=== PATIENT | female | born 2005 | race Asian ===

== ENCOUNTER 2024-09-11 23:12 | Inpatient (IN) | payer OTHER ==
[~2024-09-11] VITALS: Ht 152.4 cm; Wt 45.4 kg
[2024-09-11] MEDS: ONDANSETRON HCL INJ 2MG/ML 2ML 2 MG/ML VIAL IV STA (23:46)
[2024-09-11] MEDS: SODIUM CHLORIDE 0.9% 1000ML 1,000 ML IV ONE (23:46)
[2024-09-11] MEDS: SODIUM CHLORIDE FLUSH 10 ML SYR INJ PRN (23:47)
[2024-09-11 23:49] LABS: BASOPHILS % 0.3 % (0.0-1.0); HEMATOCRIT 47.7 % (34.2-44.1); LYMPHOCYTES # (AUTO) 0.4 (1.0-3.2); LYMPHOCYTES % 5.6 % (18.0-39.1); MEAN CORPUSCULAR HEMOGLOBIN 27.1 pg (28-32); MEAN CORPUSCULAR HGB CONC 31.4 g/dL (31-35); MEAN CORPUSCULAR VOLUME 86.1 fL (81-99); MONOCYTES # (AUTO) 0.6 (0.2-0.8); NEUTROPHILS # (AUTO) 6.7 (2.1-6.9); NEUTROPHILS % 85.8 % (38.7-80.0); PLATELET COUNT 389 x10e3/uL (140-360); RED BLOOD COUNT 5.54 x10e6/uL (3.6-5.1); RED CELL DISTRIBUTION WIDTH 12.8 % (11.7-14.4); WHITE BLOOD COUNT 7.83 x10e3/uL (4.8-10.8)
[2024-09-12 00:03] LABS: LIPASE 41 U/L (8-78)
[2024-09-12 00:07] LABS: ALBUMIN 4.5 g/dL (3.5-5.0); ALBUMIN/GLOBULIN RATIO 1.3 (0.8-2.0); ANION GAP 21.3 mmol/L (8-16); BILIRUBIN,TOTAL 0.5 mg/dL (0.2-1.2); CREATININE, SERUM 0.8 mg/dL (0.57-1.11); POTASSIUM 4.3 mmol/L (3.5-5.1); TOTAL PROTEIN 7.9 g/dL (6.5-8.1)
[2024-09-12] MEDS ORDERED: IOPAMIDOL 370 MG/ML 100 ML INFUS..BTL INJ ONE (00:22)
[2024-09-12] MEDS: SODIUM CHLORIDE 0.9% 1000ML 1,000 ML IV ONE (00:53)
[2024-09-12 02:00] VITALS: RESP 18
[2024-09-12] MEDS: SODIUM CHLORIDE 0.9% 1000ML 1,000 ML IV SCH ×2 (02:03→03:00)
[2024-09-12 02:06] LABS: CLARITY,URINE CLEAR (CLEAR); COLOR,URINE YELLOW (YELLOW); GLUCOSE, URINE NEGATIVE (NEGATIVE); LEUKOCYTE ESTERASE ,URINE NEGATIVE (NEGATIVE); NITRITE,URINE NEGATIVE (NEGATIVE); PH,URINE 6 (5 - 7); PROTEIN,URINE DIPSTICK 1+ (NEGATIVE)
[2024-09-12 02:07] LABS: BILIRUBIN,URINE NEGATIVE (NEGATIVE); KETONES,URINE 2+ (NEGATIVE); URINE UROBILINOGEN 0.2 mg/dL (0.2 - 1)
[2024-09-12 02:12] LABS: BACTERIA,URINE MANY /HPF; EPITHELIAL CELLS,URINE MANY /LPF; RBC,URINE 0-5 /HPF (0-5); WBC,URINE (MAN) 0-5 /HPF (0-5)
[2024-09-12] MEDS ORDERED: ONDANSETRON HCL INJ 2MG/ML 2ML 2 MG/ML VIAL IV PRN (03:00)
[2024-09-12] MEDS: METRONIDAZOLE 500MG/NS 100ML 100 ML IV SCH ×2 (03:28→08:36)
[2024-09-12] MEDS: ACETAMINOPHEN 1000 MG/100 ML IV SCH (06:00)
[2024-09-12 06:44] VITALS: PULSE 83; TEMP 98.4
[2024-09-12] MEDS: LACTATED RINGER'S 1,000 ML INJ SCH (09:36)
[2024-09-12 14:00] VITALS: BP 105/57; PULSE 85; RESP 17; TEMP 98.5; O2SAT 99
[2024-09-12 14:18] VITALS: BP 105/57; PULSE 85; RESP 17; TEMP 98.5; O2SAT 99
[2024-09-12 16:00] VITALS: BP 108/61; PULSE 90; RESP 18; TEMP 98.1; O2SAT 100
[2024-09-12 16:15] LABS: BASOPHILS % 0.5 % (0.0-1.0); EOSINOPHILS % 0.3 % (0.0-6.0); HEMATOCRIT 38.8 % (34.2-44.1); HEMOGLOBIN 11.9 g/dL (12.0-16.0); LYMPHOCYTES # (AUTO) 0.5 (1.0-3.2); LYMPHOCYTES % 6.8 % (18.0-39.1); MEAN CORPUSCULAR HEMOGLOBIN 26.9 pg (28-32); MEAN CORPUSCULAR HGB CONC 30.7 g/dL (31-35); MEAN CORPUSCULAR VOLUME 87.6 fL (81-99); MONOCYTES # (AUTO) 0.7 (0.2-0.8); MONOCYTES % 9.7 % (4.4-11.3); NEUTROPHILS # (AUTO) 6.1 (2.1-6.9); NEUTROPHILS % 82.4 % (38.7-80.0); PLATELET COUNT 319 x10e3/uL (140-360); RED BLOOD COUNT 4.43 x10e6/uL (3.6-5.1); RED CELL DISTRIBUTION WIDTH 13.1 % (11.7-14.4); WHITE BLOOD COUNT 7.35 x10e3/uL (4.8-10.8)
[2024-09-12 20:00] VITALS: BP 108/69; PULSE 88; RESP 20; TEMP 97.9; O2SAT 100
[2024-09-13 02:13] VITALS: BP 108/69; PULSE 88; RESP 20; TEMP 97.9; O2SAT 100
[2024-09-13 04:00] VITALS: BP 113/59; PULSE 93; RESP 16; TEMP 98; O2SAT 98
[2024-09-13 05:47] LABS: BASOPHILS % 0.5 % (0.0-1.0); EOSINOPHILS % 0.6 % (0.0-6.0); HEMATOCRIT 37.3 % (34.2-44.1); HEMOGLOBIN 11.6 g/dL (12.0-16.0); LYMPHOCYTES # (AUTO) 0.4 (1.0-3.2); MEAN CORPUSCULAR HGB CONC 31.1 g/dL (31-35); MEAN CORPUSCULAR VOLUME 86.7 fL (81-99); MONOCYTES # (AUTO) 0.7 (0.2-0.8); MONOCYTES % 10.3 % (4.4-11.3); NEUTROPHILS # (AUTO) 5.3 (2.1-6.9); NEUTROPHILS % 82.3 % (38.7-80.0); PLATELET COUNT 295 x10e3/uL (140-360); RED CELL DISTRIBUTION WIDTH 12.9 % (11.7-14.4); WHITE BLOOD COUNT 6.48 x10e3/uL (4.8-10.8)
[2024-09-13 06:12] LABS: ALBUMIN 3.2 g/dL (3.5-5.0); ANION GAP 14.8 mmol/L (8-16); BILIRUBIN,TOTAL 0.6 mg/dL (0.2-1.2); CALCIUM 8.5 mg/dL (8.4-10.2); CREATININE, SERUM 0.71 mg/dL (0.57-1.11); POTASSIUM 3.8 mmol/L (3.5-5.1); TOTAL PROTEIN 5.7 g/dL (6.5-8.1)
[2024-09-13 06:13] LABS: ALBUMIN/GLOBULIN RATIO 1.3 (0.8-2.0)
[2024-09-13 08:45] VITALS: BP 113/59; PULSE 93; RESP 16; TEMP 98; O2SAT 98
[2024-09-13 11:00] VITALS: BP 101/67; PULSE 80; RESP 17; TEMP 98.2; O2SAT 100
== END 2024-09-13 12:00 | disposition home or self-care (01) | DRG 372 ==
LOC: ER 23:26 → ERHOLD 09-12 02:56 → MED/SURG2 09-12 13:53
PROVIDERS: ADMIT Surgery; ATTEND Surgery
DX: A04.9 Bacterial intestinal infection, unspecified (principal); K56.609 Unspecified intestinal obstruction, unspecified as to partial versus complete obstruction; R10.9 Unspecified abdominal pain; R11.2 Nausea with vomiting, unspecified
CPT/HCPCS: 36415; 74177; 80053; 81001; 83690; 84702; 85025; 99284; J2405; J2470; J2543; J7030; Q9967